=== PATIENT | male | born 1945 | race Caucasian/White ===

== ENCOUNTER 2022-09-06 12:28 | Outpatient (CLI) | payer OTHER ==
[~2022-09-06 12:28] MED LIST: ASPI-1265 PO; CLOP75TA34 PO; LOP25T PO; OMEP-84 PO; VERA240T PO; ZET10T PO
== END 2022-09-06 23:59 | disposition home or self-care (01) ==
LOC: CARD DIAG 12:28
PROVIDERS: ATTEND Chiropractor
DX: I08.8 Other rheumatic multiple valve diseases (principal); I25.10 Atherosclerotic heart disease of native coronary artery without angina pectoris
CPT/HCPCS: 93306